=== PATIENT | female | born 2000 | race African-American/Black ===

== ENCOUNTER 2022-02-14 16:46 | Emergency (ER) | payer SELFPAY ==
[2022-02-14 17:16] LABS: #Basophils 0.1 thou/uL (0.0-0.2); #Eosinphils 0.1 thou/uL (0.0-0.7); #Lymphocytes 1.9 thou/uL (1.20-3.40); #Monocytes 0.3 thou/uL (0.11-0.59); #Neutrophils 1.7 thou/uL (1.40-6.50); %Basophils 2.5 % (0.0-1.0); %Eosinophils 1.9 % (0.0-10.0); %Lymphocytes 46.1 % (21.0-51.0); %Monocytes 8.5 % (0.0-10.0); %Neutrophils 41.1 % (42.0-75.0); Hemoglobin 5.7 g/dL (12.0-16.0); Mean Corpuscular HGB CONC 28.5 g/dL (32.0-36.0); Mean Corpuscular Hemoglobin 15.3 pg (27.0-31.0); Mean Corpuscular Volume 53.7 fl (78.0-98.0); Mean Platelet Volume 6.7 fL (7.4-10.4); Platelet Count 37 10x3/uL (130-400); RBC Distribution Width 26.4 % (11.5-14.5); Red Blood Cell (RBC) Count 3.75 mill/uL (4.20-5.40)
[2022-02-14 17:23] LABS: INR-International Normal Ratio 1.2; PTT 41.4 sec (22.9-36.1); Prothrombin Time 15.7 sec (12.0-14.7)
[2022-02-14 17:33] LABS: ALT (SGPT) 416 U/L (8-55); AST (SGOT) 395 U/L (5-34); Albumin 4.2 g/dL (3.5-5.0); Alkaline Phosphatase 85 U/L (40-110); Anion Gap 10 mmol/L (10-20); BUN (Urea Nitrogen) 6 mg/dL (7.0-18.7); Bilirubin, Total 0.8 mg/dL (0.2-1.2); Calc. Creatinine Clearance 0 mL/min (70-130); Calcium 9.1 mg/dL (7.8-10.44); Carbon Dioxide 24 mmol/L (22-29); Chloride 106 mmol/L (98-107); Estimated GFR 128; Globulin 4.6 g/dL (2.4-3.5); Glucose 81 mg/dL (70-105); Potassium 3.8 mmol/L (3.5-5.1); Protein, Total 8.8 g/dL (6.0-8.3); Sodium 136 mmol/L (136-145)
[2022-02-14 17:39] LABS: Anisocytosis MODERATE=16-30 cells (100X) (0-5/hpf); Hypochromia MODERATE=16-30 cells (100X) (0-5/hpf); MDiff Complete? YES; Microcytosis MODERATE=15-30 cells (100X) (0-5/hpf); Ovalocytes SLIGHT = 2-5 cells (100X) (0-1/hpf); Platelet Morphology Comment Appears Decreased; Poikilocytosis SLIGHT = 6-15 cells (100X) (0-5/hpf); Polychromasia MODERATE = 3-4 cells (100X) (0-2/hpf); Reflex for Review?? YES; Schistocytes SLIGHT = 2-5 cells (100X) (0-1/hpf); Spherocytes SLIGHT = 1-5 cells (100X) (None Seen); Target Cells SLIGHT = 2-5 cells (100X) (0-1/hpf)
[2022-02-14 18:53] LABS: Iron 12 ug/dL (50-170); Iron Binding Capacity, Total 593 mcg/dL (265-497)
== END 2022-02-14 23:30 | disposition home or self-care (01) ==
LOC: ERS 16:46
DX: D50.9 Iron deficiency anemia, unspecified (principal)
CPT/HCPCS: 36415; 36430; 80053; 82728; 83540; 83550; 85025; 85060; 85610; 85730; 86850; 86900; 86901; 99284; P9016

== ENCOUNTER 2022-02-17 16:07 | Emergency (ER) | payer SELFPAY ==
[2022-02-17 16:38] LABS: Hemoglobin 9.8 g/dL (12.0-16.0); Mean Corpuscular HGB CONC 30.4 g/dL (32.0-36.0); Mean Corpuscular Hemoglobin 19.7 pg (27.0-31.0); Mean Corpuscular Volume 64.7 fl (78.0-98.0); Mean Platelet Volume 7.8 fL (7.4-10.4); Platelet Count 161 10x3/uL (130-400); RBC Distribution Width 33.1 % (11.5-14.5); White Blood Cell (WBC) Count 7.1 10x3/uL (4.8-10.8)
[2022-02-17 16:53] LABS: ALT (SGPT) 350 U/L (8-55); AST (SGOT) 302 U/L (5-34); Albumin 4.2 g/dL (3.5-5.0); Alkaline Phosphatase 84 U/L (40-110); Anion Gap 11 mmol/L (10-20); BUN (Urea Nitrogen) 6 mg/dL (7.0-18.7); Bilirubin, Total 1.4 mg/dL (0.2-1.2); Calc. Creatinine Clearance 0 mL/min (70-130); Calcium 9.5 mg/dL (7.8-10.44); Carbon Dioxide 24 mmol/L (22-29); Chloride 106 mmol/L (98-107); Estimated GFR 126; Globulin 4.8 g/dL (2.4-3.5); Glucose 93 mg/dL (70-105); Potassium 3.5 mmol/L (3.5-5.1); Sodium 137 mmol/L (136-145)
[2022-02-17 17:01] LABS: #Basophils 0.2 thou/uL (0.0-0.2); #Eosinphils 0.2 thou/uL (0.0-0.7); #Lymphocytes 1.8 thou/uL (1.20-3.40); #Monocytes 0.4 thou/uL (0.11-0.59); #Neutrophils 4.5 thou/uL (1.40-6.50); %Basophils 2.4 % (0.0-1.0); %Eosinophils 2.8 % (0.0-10.0); %Lymphocytes 25.3 % (21.0-51.0); %Monocytes 5.9 % (0.0-10.0); %Neutrophils 63.7 % (42.0-75.0); Anisocytosis SLIGHT = 6-15 cells (100X) (0-5/hpf); MDiff Complete? YES; Platelet Morphology Comment Appears Adequate
[2022-02-17] MEDS ORDERED: Famotidine 20 MG TAB ONE ×2 (18:41→18:45)
[2022-02-17] MEDS ORDERED: hydrOXYzine 25 MG TAB ONE ×2 (18:43→18:45)
== END 2022-02-17 19:13 | disposition home or self-care (01) ==
LOC: ERS 16:07
DX: L03.213 Periorbital cellulitis (principal)
CPT/HCPCS: 36415; 80053; 85025; 99283

== ENCOUNTER 2023-01-10 20:02 | Inpatient (IN) | payer SELFPAY ==
[2023-01-10 20:40] LABS: #Basophils 0.1 thou/uL (0.0-0.2); #Monocytes 0.6 thou/uL (0.11-0.59); #Neutrophils 8.2 thou/uL (1.40-6.50); %Basophils 0.4 % (0.0-1.0); %Eosinophils 0.4 % (0.0-10.0); %Lymphocytes 19.1 % (21.0-51.0); %Monocytes 5.4 % (0.0-10.0); %Neutrophils 73.5 % (42.0-75.0); Hematocrit 41.8 % (36.0-47.0); Hemoglobin 14.2 g/dL (12.0-16.0); Mean Corpuscular Hemoglobin 26.2 pg (27.0-31.0); Platelet Count 526 10x3/uL (130-400); RBC Distribution Width 13.8 % (11.5-14.5); Red Blood Cell (RBC) Count 5.43 mill/uL (4.20-5.40); White Blood Cell (WBC) Count 11.2 10x3/uL (4.8-10.8)
[2023-01-10 20:49] LABS: BHCG - Serum Negative (NEGATIVE); Pregs Control Background? CLEAR/WHITE (CLR/WHITE); Pregs Control Bar Appear? YES (CONTROL BAR)
[2023-01-10 20:54] LABS: Base Excess -21.5 mEq/L (-2.0 to +3.0); Chloride (VBG) 107 mmol/L (98-106); Hematocrit-VBG 45 % (36.0-47.0); Hemoglobin (Hb) 15.3 g/dL (11.7-15.5); Sodium 140 mmol/L (133-146)
[2023-01-10 20:57] LABS: ALT (SGPT) 16 U/L (8-55); AST (SGOT) 15 U/L (5-34); Albumin 5.1 g/dL (3.5-5.0); Alkaline Phosphatase 97 U/L (40-110); Anion Gap 22 mmol/L (10-20); BUN (Urea Nitrogen) 10 mg/dL (7.0-18.7); Bilirubin, Total 0.4 mg/dL (0.2-1.2); Calc. Creatinine Clearance 0 mL/min (70-130); Calcium 9.4 mg/dL (7.8-10.44); Chloride 109 mmol/L (98-107); Estimated GFR 50; Lipase 21 U/L (8-78); Magnesium 2.1 mg/dL (1.6-2.6); Potassium 4.2 mmol/L (3.5-5.1); Protein, Total 9.1 g/dL (6.0-8.3); Sodium 135 mmol/L (136-145)
[2023-01-10 21:03] LABS: Carbon Dioxide 8 mmol/L (22-29); Glucose 503 mg/dL (70-105)
[2023-01-10] MEDS ORDERED: INSULIN REGULAR IN 0.9 % NACL 100 UNITS/100 ML BAG ONE (21:14)
[2023-01-10 21:15] LABS: Phosphorus 3.1 mg/dL (2.3-4.7)
[2023-01-10] MEDS ORDERED: Electrolyte Replacement Protocol 1 EACH IVPB PRN (21:49)
[2023-01-10] MEDS ORDERED: Acetaminophen 325 MG TAB PO PRN (21:49)
[2023-01-10] MEDS ORDERED: Dextrose 50% Abboject 50 ML SYRINGE SLOW IVP PRN (21:49)
[2023-01-10] MEDS ORDERED: Ondansetron PF 4 MG/2 ML Vial IVP PRN (21:49)
[2023-01-10] MEDS ORDERED: Dextrose 5 %-0.45 % NaCl 1,000 ML IV PRN (21:49)
[2023-01-10] MEDS ORDERED: NS 0.9% w/ 20 MEQ KCL 1,000 ML IV PRN ×2 (21:49)
[2023-01-10] MEDS ORDERED: Sodium Chloride 0.9% 1,000 ML IV PRN ×4 (21:49)
[2023-01-10] MEDS ORDERED: HUMULIN R 100 UNITS in Sodium Chloride 0.9% 100 ML IVPB SCH (22:00)
[2023-01-10 23:48] LABS: Troponin I Less than 0.010 ng/mL (< 0.028)
[2023-01-10 23:50] LABS: Bacteria/HPF Rare-Few HPF (None Seen); Bilirubin Negative (Negative); Blood, Urine Trace (Negative); CAUTI Indications for Culture Dysuria,urgency,freq; Clarity Clear (Clear); Glucose, Urine (Dipstick) Greater than 1000 mg/dL (Negative); Ketone, Urine Greater than 150 mg/dL (Negative); Leukocyte 75 Leu/uL (Negative); Nitrite Negative (Negative); Protein, Urine (Dipstick) 20 mg/dL (Neg-Trace); Specific Gravity, Urine 1.021 (1.002-1.036); Squamous Epithelial 0-3 HPF (0-3); Urobilinogen Normal mg/dL (Less than 2)
[2023-01-10 23:51] LABS: Urine Culture Reflex Yes Yes
[2023-01-11] MEDS: cefTRIAXone\\ROCEPHIN 1 GM in Sodium Chloride 0.9% 100 ML IVPB SCH (00:56)
[2023-01-11] MEDS: D5 1/2 NS w/20 mEq KCL 1,000 ML IV PRN ×4 (01:46→13:59)
[2023-01-11 02:31] LABS: #Monocytes 0.6 thou/uL (0.11-0.59); %Basophils 0.4 % (0.0-1.0); %Eosinophils 0.5 % (0.0-10.0); %Lymphocytes 30.5 % (21.0-51.0); %Monocytes 6.9 % (0.0-10.0); %Neutrophils 60.6 % (42.0-75.0); Mean Corpuscular HGB CONC 34.4 g/dL (32.0-36.0); Mean Corpuscular Hemoglobin 26.3 pg (27.0-31.0); Mean Corpuscular Volume 76.3 fl (78.0-98.0); Mean Platelet Volume 8.8 fL (7.4-10.4); RBC Distribution Width 13.7 % (11.5-14.5); Red Blood Cell (RBC) Count 3.92 mill/uL (4.20-5.40); White Blood Cell (WBC) Count 8.3 10x3/uL (4.8-10.8)
[2023-01-11 02:37] LABS: Hemoglobin 10.3 g/dL (12.0-16.0)
[2023-01-11 02:38] LABS: Hematocrit 29.9 % (36.0-47.0); Platelet Count 329 10x3/uL (130-400)
[2023-01-11 04:36] LABS: Sodium 138 mmol/L (136-145)
[2023-01-11 04:37] LABS: Anion Gap 11 mmol/L (10-20); BUN (Urea Nitrogen) 7 mg/dL (7.0-18.7); Calc. Creatinine Clearance 84 mL/min (70-130); Calcium 7.7 mg/dL (7.6-10.4); Carbon Dioxide 10 mmol/L (22-29); Chloride 121 mmol/L (98-107); Estimated GFR 95; Glucose 247 mg/dL (70-105); Potassium 3.6 mmol/L (3.5-5.1)
[2023-01-11 04:38] LABS: Hemoglobin A1c 8.7 % (4.0-6.0); Magnesium 1.6 mg/dL (1.6-2.6)
[2023-01-11 07:21] LABS: Anion Gap 9 mmol/L (10-20); BUN (Urea Nitrogen) 5 mg/dL (7.0-18.7); Calc. Creatinine Clearance 91 mL/min (70-130); Calcium 7.8 mg/dL (7.8-10.44); Carbon Dioxide 12 mmol/L (22-29); Chloride 117 mmol/L (98-107); Estimated GFR 99; Glucose 327 mg/dL (70-105); Potassium 3.5 mmol/L (3.5-5.1); Sodium 134 mmol/L (136-145)
[2023-01-11] MEDS ORDERED: Magnesium 2 GM/50 ML(in water) 2 GM in Premix 1 BAG IVPB SCH (08:00)
[2023-01-11] MEDS ORDERED: Potassium Chloride 20 MEQ TAB PO SCH (09:00)
[2023-01-11 12:39] VITALS: BMI 22.6
[2023-01-11 13:33] LABS: Anion Gap 9 mmol/L (10-20); BUN (Urea Nitrogen) Less than 4 mg/dL (7.0-18.7); Calc. Creatinine Clearance 102 mL/min (70-130); Calcium 7.8 mg/dL (7.8-10.44); Carbon Dioxide 13 mmol/L (22-29); Chloride 116 mmol/L (98-107); Estimated GFR 113; Glucose 165 mg/dL (70-105); Potassium 3.2 mmol/L (3.5-5.1); Sodium 135 mmol/L (136-145)
[2023-01-11 13:43] LABS: Actual Bicarbonate (HCO3v) 8.1 mEq/L (22-28)
[2023-01-11] MEDS ORDERED: Dextrose 5% in Water 1,000 ML IV PRN (17:51)
[2023-01-11] MEDS ORDERED: Glucagon 1 MG/ML KIT IM PRN (17:51)
[2023-01-11] MEDS ORDERED: Dextrose 50% Abboject 50 ML SYRINGE SLOW IVP PRN (17:51)
[2023-01-11] MEDS ORDERED: Insulin Glargine 30 UNITS/0.3 ML VIAL SC SCH (21:00)
[2023-01-11] MEDS: HumaLOG 300 UNITS/3 ML VIAL SC PRN (21:04)
[2023-01-12] MEDS: cefTRIAXone\\ROCEPHIN 1 GM in Sodium Chloride 0.9% 100 ML IVPB SCH (00:20)
[2023-01-12 04:10] LABS: #Eosinphils 0.1 thou/uL (0.0-0.7); #Monocytes 0.4 thou/uL (0.11-0.59); #Neutrophils 2.5 thou/uL (1.40-6.50); %Basophils 0.6 % (0.0-1.0); %Eosinophils 1.8 % (0.0-10.0); %Lymphocytes 41.4 % (21.0-51.0); %Monocytes 7.4 % (0.0-10.0); %Neutrophils 48.4 % (42.0-75.0); Hematocrit 28.5 % (36.0-47.0); Hemoglobin 10.1 g/dL (12.0-16.0); Mean Corpuscular HGB CONC 35.4 g/dL (32.0-36.0); Mean Corpuscular Hemoglobin 25.8 pg (27.0-31.0); Mean Corpuscular Volume 72.7 fl (78.0-98.0); Platelet Count 316 10x3/uL (130-400); RBC Distribution Width 13.4 % (11.5-14.5); Red Blood Cell (RBC) Count 3.92 mill/uL (4.20-5.40); White Blood Cell (WBC) Count 5.1 10x3/uL (4.8-10.8)
[2023-01-12 04:30] LABS: Anion Gap 11 mmol/L (10-20); BUN (Urea Nitrogen) Less than 4 mg/dL (7.0-18.7); Calc. Creatinine Clearance 119 mL/min (70-130); Calcium 7.9 mg/dL (7.8-10.44); Carbon Dioxide 18 mmol/L (22-29); Chloride 110 mmol/L (98-107); Estimated GFR 127; Glucose 220 mg/dL (70-105); Magnesium 1.7 mg/dL (1.6-2.6); Sodium 136 mmol/L (136-145)
[2023-01-12] MEDS: HumaLOG 300 UNITS/3 ML VIAL SC PRN ×2 (05:45→11:40)
[2023-01-12 07:39] VITALS: TEMP 98.3
[2023-01-12] MEDS ORDERED: Magnesium 2 GM/50 ML(in water) 2 GM in Premix 1 BAG IVPB SCH (08:00)
[2023-01-12] MEDS ORDERED: Potassium Bicarbonate/Cit Ac 20 MEQ TAB PO SCH (08:00)
[2023-01-14] MEDS ORDERED: FLU VACC QS2023-24(6MOS UP)/PF 60 MCG/0.5 ML SYRINGE IM ONE (09:00)
== END 2023-01-12 16:38 | disposition home or self-care (01) | DRG 638 ==
LOC: ERS 20:02 → IMCU/EMU 21:41
PROVIDERS: ADMIT Internal Medicine; ATTEND Internal Medicine
PROC: 4A043R1 Measurement of Venous Saturation, Peripheral, Percutaneous Approach (ICD-10-PCS; principal; 2023-01-10)
DX: E10.10 Type 1 diabetes mellitus with ketoacidosis without coma (principal); N17.9 Acute kidney failure, unspecified; N39.0 Urinary tract infection, site not specified; D50.9 Iron deficiency anemia, unspecified; E86.1 Hypovolemia; E86.0 Dehydration; Z79.4 Long term (current) use of insulin; Z79.899 Other long term (current) drug therapy
CPT/HCPCS: 36415; 36416; 71045; 80048; 80053; 81001; 82010; 82805; 82947; 83036; 83690; 83735; 84100; 84484; 84703; 85025; 87086; 93005; J0696; J1650; J1815; J3475; J3480; J3490